=== PATIENT | female | born 1945 | race Caucasian/White ===

== ENCOUNTER 2017-11-27 10:25 | Observation (INO) ==
[2017-11-27] MEDS ORDERED: Ondansetron 4 MG/2 ML VIAL IVP ONE ×2 (10:50→15:42)
[2017-11-27] MEDS ORDERED: 0.9 % Sodium Chloride 1,000 ML IVC ONE (10:50)
[2017-11-27] MEDS ORDERED: *HR* HYDROcodone/Acet 5/325 mg TABLET PO ONE (10:50)
--- NOTE | 2017-11-27 10:53 | Emergency Department Note ---
Disposition Clinical Impression: Renal cyst, Hypoxia Abdominal pain Qualifiers: Abdominal location: unspecified location Qualified Code(s): R10.9 - Unspecified abdominal pain Urinary tract infection Qualifiers: Urinary tract infection type: site unspecified Hematuria presence: with hematuria Qualified Code(s): N39.0 - Urinary tract infection, site not specified Disposition: Admitted As Inpatient Condition: Good Referrals: Foreign Antunez MD [Primary Care Provider] - Scot Rodriguez MD [Partnered Physician] - 12/03/17 3:00 am Forms: ED Satisfaction Letter Time of Disposition: 14:50 General Adult HPI - General Chief complaint: ED Back Pain/Injury Stated complaint: kidney pain Time Seen by Provider: 11/27/17 10:38 Source: patient Mode of arrival: ambulatory Limitations: no limitations Nursing Notes Reviewed: Yes Vital Signs Reviewed: Yes - History of Present Illness HPI Narrative: 72-year-old female presents for evaluation of left flank pain. Patient states she fell proximally 2 months ago. Patient states that she started having urinary symptoms approximately a month ago it over the past 2 weeks had developed left-sided flank pain. Patient states she has completed a course of Cipro for 10 days by her primary care doctor after saying that she had a UTI. Patient states that her urinary symptoms have improved but noted persistent left flank pain. Notes pain is worse in the mornings. No specific aggravating or alleviating factors. Patient states that she is currently on a second round of Cipro. Patient denies any fevers. Reports some nausea but no vomiting. No diarrhea but does have some constipation. Patient has had her gallbladder removed. Denies any other abdominal surgeries. Pain Scale: 5 - Related Data Home Medications Medication Instructions Recorded Confirmed Amlodipine 09/08/15 Atenolol 09/08/15 Lisinopril 09/08/15 09/08/15 Previous Rx's Medication Instructions Recorded Phenazopyridine HCl [Pyridium] 200 mg PO TID #6 tab 09/08/15 Sulfamethoxazole/Trimeth DS 1 each PO BID #14 tablet 09/08/15 [Bactrim DS] Allergies Allergy/AdvReac Type Severity Reaction Status Date / Time codeine Allergy Rash Verified 11/27/17 10:32 Penicillins Allergy Rash Verified 11/27/17 10:32 All systems ED: reviewed and negative except as stated. Constitutional: Denies: fever Cardiovascular: Denies: chest pain Respiratory: Denies: cough Gastrointestinal: Reports: abdominal pain, nausea, vomiting, constipation Genitourinary: Denies: urgency, dysuria Past Medical History - Past Medical History Source: patient Medical history: Reports: hypertension Psychiatric history: Reports: depression - Social History Smoking Status: Never smoker Smokeless Tobacco Status: No Alcohol use: Reports: none Physical Exam - General Limitations: no limitations General appearance: alert, in no apparent distress - Head Head exam: atraumatic, normocephalic, normal inspection - Eye Eye exam: Present: normal appearance, PERRL, EOMI - ENT ENT exam: normal exam - Neck Neck exam: Present: normal inspection - Chest Chest inspection: Present: normal inspection - Respiratory Respiratory exam: Present: normal lung sounds bilaterally. Absent: respiratory distress - Cardiovascular Cardiovascular exam: Present: regular rate - Abdominal Exam Abdominal exam: Present: soft, Non-Tender - Extremities Exam Extremities exam: Present: normal inspection. Absent: pedal edema - Back Exam Back exam: Present: normal inspection, other (No significant left flank pain tenderness on palpation. No erythema or signs of injury.). Absent: CVA tenderness (R), CVA tenderness (L), vertebral tenderness, rashes - Neurological Exam Neurological exam: Present: alert, oriented X3, CN II-XII intact - Skin Skin exam: Present: warm, dry, intact, normal color Course Course Narrative: Patient seen and examined. Patient family the treatment without difficulty. Patient will get basic labs including a urinalysis. CT scan abdomen pelvis. Prior cultures of her urine grew Klebsiella which was sensitive to Levaquin. Disposition pending. - Reevaluation(s) Reevaluation #1: Patient seen and examined. Symptoms improved. Time: 11:51 Reevaluation #2: Patient seen and examined. Patient's pain is controlled. Vital stable. Patient does have arrange follow-up with urology. Discussion appointment within the next week. Patient will be given appropriate pain control and antibiotics until then. Time: 14:45 Reevaluation #3: Patient was noted to be hypoxic with room air sat of 88-89%. We will obtain a chest x-ray. Patient states she does not feel short of breath and has no history of lung disease. Time: 14:55 Vital Signs Temperature 97.9 F 11/27/17 10:30 Pulse Rate 63 11/27/17 10:30 Respiratory Rate 18 11/27/17 10:30 Blood Pressure 158/85 11/27/17 10:30 O2 Sat by Pulse Oximetry 97 11/27/17 10:30 Temperature 97.9 F 11/27/17 10:52 Pulse Rate 73 11/27/17 14:24 Respiratory Rate 14 11/27/17 14:24 Blood Pressure 161/92 11/27/17 14:24 O2 Sat by Pulse Oximetry 94 11/27/17 14:24 Oxygen Delivery Oxygen Delivery Room Air Medical Decision Making - MDM Narrative Medical decision making narrative: Patient presented for concerns of left flank pain. Patient had a CT scan which showed an indeterminate renal lesion concerning for hemorrhagic cyst. Patient has been having hematuria. Patient has findings consistent with urinary tract infection is been on Cipro. Patient prior cultures grew Klebsiella. Patient will be given a gram of Rocephin and discharged with Keflex. Patient was sensitive to that medication in the past. Patient will be given a short course of [place] to help with the cyst. Patient also be given antibiotics. Follow-up was arranged with urology. Prior discharge the patient was hypoxic. This was not correlated with the patient's pain management. Patient did get a chest x-ray showed mild cardiomegaly and elevated hemidiaphragm. No pneumonia. Patient is requiring 2 L nasal cannula. With this information the patient will likely need admission for oxygen supplementation as well as continued evaluation. Patient does have follow-up with urology scheduled. Will leave that in place. Will add a BNP to the patient's labs. - Lab Data Lab results reviewed: Yes I reviewed the patient's lab results. Result diagrams: 11/27/17 10:49 11/27/17 13:03 Lab Results 11/27/17 11/27/17 11/27/17 Range/Units 10:49 10:49 10:49 WBC 8.1 (4.3-11.1) K/mcL RBC 4.94 (3.82-4.97) M/mcL Hgb 14.1 (11.5-15.4) g/dL Hct 43.3 (35.3-44.9) % MCV 87.7 (83.0-100.0) fL MCH 28.5 (28.0-33.3) pg MCHC 32.6 (31.6-35.5) g/dL RDW 14.1 (11.5-14.5) % Plt Count 239 (140-400) K/mcL MPV 11.7 (9.4-12.4) fL Immature Gran % 0.2 (0-4) % Seg Neutrophils % 77.0 % Lymphocytes % 14.8 % Monocytes % 7.0 % Eosinophils % 0.4 % Basophils % 0.6 % Neutrophils # 6.2 (1.6-8.9) K/mcL Lymphocytes # 1.2 (0.6-4.6) K/mcL Monocytes # 0.6 (0.0-1.3) K/mcL Eosinophils # 0.0 (0.0-0.6) K/mcL Basophils # 0.1 (0.0-0.2) K/mcL Sodium Cancelled Potassium Cancelled Chloride Cancelled Carbon Dioxide Cancelled BUN Cancelled Creatinine Cancelled Est GFR ( Amer) Cancelled Est GFR (Non-Af Amer) Cancelled BUN/Creatinine Ratio Cancelled Glucose Cancelled Calculated Osmolality Cancelled Calcium Cancelled Total Bilirubin Cancelled Direct Bilirubin Cancelled Indirect Bilirubin Cancelled AST Cancelled ALT Cancelled Alkaline Phosphatase Cancelled Troponin I < 0.03 (< 0.04) ng/mL Serum Total Protein Cancelled Albumin Cancelled Globulin Cancelled Albumin/Globulin Ratio Cancelled Lipase Cancelled Urine Color (Yellow) Urine Clarity (Clear) Urine pH (5.0-8.0) pH Units Ur Specific [place] (1.010-1.025) Urine Protein (Neg-Trace) mg/dL Urine Glucose (UA) (Normal) mg/dL Urine Ketones (Negative) mg/dL Urine Blood (Negative) Urine Nitrite (Negative) Urine Bilirubin (Negative) Urine Urobilinogen (Normal) mg/dL Ur Leukocyte Esterase (Negative) Urine Microscopic RBC (0-3) per hpf Urine Microscopic WBC (0-3) per hpf Ur Squamous Epith Cells (None-Few) per lpf Urine Bacteria (None-Few) per hpf Hyaline Casts (None-Few) per lpf Ur Culture Indicated? (NO) Specimen Rejected Hemolyzed 11/27/17 11/27/17 Range/Units 12:07 13:03 WBC (4.3-11.1) K/mcL RBC (3.82-4.97) M/mcL Hgb (11.5-15.4) g/dL Hct (35.3-44.9) % MCV (83.0-100.0) fL MCH (28.0-33.3) pg MCHC (31.6-35.5) g/dL RDW (11.5-14.5) % Plt Count (140-400) K/mcL MPV (9.4-12.4) fL Immature Gran % (0-4) % Seg Neutrophils % % Lymphocytes % % Monocytes % % Eosinophils % % Basophils % % Neutrophils # (1.6-8.9) K/mcL Lymphocytes # (0.6-4.6) K/mcL Monocytes # (0.0-1.3) K/mcL Eosinophils # (0.0-0.6) K/mcL Basophils # (0.0-0.2) K/mcL Sodium 140 Potassium 3.7 Chloride 106 Carbon Dioxide 24 BUN 13 Creatinine 0.74 Est GFR ( Amer) > 60 Est GFR (Non-Af Amer) > 60 BUN/Creatinine Ratio 18 Glucose 108 H Calculated Osmolality 291 Calcium 8.7 Total Bilirubin 0.6 Direct Bilirubin 0.2 Indirect Bilirubin 0.4 AST 13 ALT 12 Alkaline Phosphatase 49 Troponin I (< 0.04) ng/mL Serum Total Protein 6.7 Albumin 4.0 Globulin 2.7 Albumin/Globulin Ratio 1.5 Lipase 13 Urine Color Dark Yellow (Yellow) Urine Clarity Clear (Clear) Urine pH 6.0 (5.0-8.0) pH Units Ur Specific [place] 1.026 H (1.010-1.025) Urine Protein Negative (Neg-Trace) mg/dL Urine Glucose (UA) Normal (Normal) mg/dL Urine Ketones 15 H (Negative) mg/dL Urine Blood Negative (Negative) Urine Nitrite Positive A (Negative) Urine Bilirubin Negative (Negative) Urine Urobilinogen Normal (Normal) mg/dL Ur Leukocyte Esterase Small H (Negative) Urine Microscopic RBC 0-3 (0-3) per hpf Urine Microscopic WBC 5-15 H (0-3) per hpf Ur Squamous Epith Cells Many H (None-Few) per lpf Urine Bacteria None Seen (None-Few) per hpf Hyaline Casts Few (None-Few) per lpf Ur Culture Indicated? NO. A (NO) Specimen Rejected - Radiology Data Radiology results reviewed: Yes I reviewed the patient's radiology results. Abdomen/Pelvis CT 09/19/18 10:50 IMPRESSION: 1. Diverticulosis. 2. Indeterminate hyperdense left renal lesion may relate to hemorrhagic cyst, although correlate CT imaging for renal mass. 3. Cholecystectomy. D/ / 11/27/2017 11:28:27 [facility] Interpre[facility] Provider: Emanuel Chapman MD - EKG Data EKG #1 EKG attestation: Yes I reviewed and interpreted this EKG. EKG shows normal: sinus rhythm Rate: normal Rhythm: NSR [place]/QRS: normal T wave inversions noted in: aVL Interpretation: no acute changes, nonspecific ST-T wave changes S.B.Negrito - Roberto Situation: Demographics Background: Presenting Complaint Assessment: Vital Signs, Course and respsone to treatment, Patient/Family Expectation Recommendation: Barrier(s) to disposition, Recommendation based on pending studies, treatments, or consults S.B.A.Hattie Report Given to: Dr. Beto Mejia Repor Time: 15:43 Attestation Statement - Attestation Attestation: I, oRcco De Guzman DO, examined this patient [id number] and my medical decision-making was reviewed with Dr. Geo Francis, Resident Physician. I agree with the documented findings, disposition and treatment plan as described except to the extent set forth below. Please see my progress notes for details.
--- NOTE | 2017-11-27 11:19 | Emergency Department Note ---
Disposition Clinical Impression: Renal cyst Abdominal pain Qualifiers: Abdominal location: unspecified location Qualified Code(s): R10.9 - Unspecified abdominal pain Urinary tract infection Qualifiers: Urinary tract infection type: site unspecified Hematuria presence: with hematuria Qualified Code(s): N39.0 - Urinary tract infection, site not specified Disposition: Admitted As Inpatient Condition: Good Referrals: Scot Rodriguez MD [Partnered Physician] - 12/03/17 3:00 am Foreign Antunez MD [Primary Care Provider] - Forms: ED Satisfaction Letter Time of Disposition: 13:56 General Adult HPI - General Chief complaint: ED Abdominal Pain Stated complaint: kidney pain Time Seen by Provider: 11/27/17 10:38 Source: patient Mode of arrival: ambulatory Limitations: no limitations - History of Present Illness Pain Scale: 5 - Related Data Home Medications Medication Instructions Recorded Confirmed Amlodipine 09/08/15 Atenolol 09/08/15 Lisinopril 09/08/15 09/08/15 Previous Rx's Medication Instructions Recorded Phenazopyridine HCl [Pyridium] 200 mg PO TID #6 tab 09/08/15 Sulfamethoxazole/Trimeth DS 1 each PO BID #14 tablet 09/08/15 [Bactrim DS] Allergies Allergy/AdvReac Type Severity Reaction Status Date / Time codeine Allergy Rash Verified 11/27/17 10:32 Penicillins Allergy Rash Verified 11/27/17 10:32 Constitutional: Denies: fever Cardiovascular: Denies: chest pain Respiratory: Denies: cough Gastrointestinal: Reports: abdominal pain, nausea, vomiting, constipation Genitourinary: Denies: urgency, dysuria Past Medical History - Past Medical History Medical history: Reports: hypertension Psychiatric history: Reports: depression - Social History Smoking Status: Never smoker Smokeless Tobacco Status: No Alcohol use: Reports: none Drug use: Reports: none Physical Exam - General Limitations: no limitations General appearance: alert, in no apparent distress Course Vital Signs Temperature 97.9 F 11/27/17 10:30 Pulse Rate 63 11/27/17 10:30 Respiratory Rate 18 11/27/17 10:30 Blood Pressure 158/85 11/27/17 10:30 O2 Sat by Pulse Oximetry 97 11/27/17 10:30 Temperature 97.9 F 11/27/17 10:52 Pulse Rate 73 09/19/18 14:24 Respiratory Rate 14 11/27/17 14:24 Blood Pressure 161/92 11/27/17 14:24 O2 Sat by Pulse Oximetry 94 11/27/17 14:24 Oxygen Delivery Oxygen Delivery Room Air Medical Decision Making - Lab Data Result diagrams: 11/27/17 10:49 11/27/17 13:03 Lab Results 11/27/17 11/27/17 11/27/17 Range/Units 10:49 10:49 10:49 WBC 8.1 (4.3-11.1) K/mcL RBC 4.94 (3.82-4.97) M/mcL Hgb 14.1 (11.5-15.4) g/dL Hct 43.3 (35.3-44.9) % MCV 87.7 (83.0-100.0) fL MCH 28.5 (28.0-33.3) pg MCHC 32.6 (31.6-35.5) g/dL RDW 14.1 (11.5-14.5) % Plt Count 239 (140-400) K/mcL MPV 11.7 (9.4-12.4) fL Immature Gran % 0.2 (0-4) % Seg Neutrophils % 77.0 % Lymphocytes % 14.8 % Monocytes % 7.0 % Eosinophils % 0.4 % Basophils % 0.6 % Neutrophils # 6.2 (1.6-8.9) K/mcL Lymphocytes # 1.2 (0.6-4.6) K/mcL Monocytes # 0.6 (0.0-1.3) K/mcL Eosinophils # 0.0 (0.0-0.6) K/mcL Basophils # 0.1 (0.0-0.2) K/mcL Sodium Cancelled Potassium Cancelled Chloride Cancelled Carbon Dioxide Cancelled BUN Cancelled Creatinine Cancelled Est GFR ( Amer) Cancelled Est GFR (Non-Af Amer) Cancelled BUN/Creatinine Ratio Cancelled Glucose Cancelled Calculated Osmolality Cancelled Calcium Cancelled Total Bilirubin Cancelled Direct Bilirubin Cancelled Indirect Bilirubin Cancelled AST Cancelled ALT Cancelled Alkaline Phosphatase Cancelled Troponin I < 0.03 (< 0.04) ng/mL Serum Total Protein Cancelled Albumin Cancelled Globulin Cancelled Albumin/Globulin Ratio Cancelled Lipase Cancelled Urine Color (Yellow) Urine Clarity (Clear) Urine pH (5.0-8.0) pH Units Ur Specific [place] (1.010-1.025) Urine Protein (Neg-Trace) mg/dL Urine Glucose (UA) (Normal) mg/dL Urine Ketones (Negative) mg/dL Urine Blood (Negative) Urine Nitrite (Negative) Urine Bilirubin (Negative) Urine Urobilinogen (Normal) mg/dL Ur Leukocyte Esterase (Negative) Urine Microscopic RBC (0-3) per hpf Urine Microscopic WBC (0-3) per hpf Ur Squamous Epith Cells (None-Few) per lpf Urine Bacteria (None-Few) per hpf Hyaline Casts (None-Few) per lpf Ur Culture Indicated? (NO) Specimen Rejected Hemolyzed 11/27/17 11/27/17 Range/Units 12:07 13:03 WBC (4.3-11.1) K/mcL RBC (3.82-4.97) M/mcL Hgb (11.5-15.4) g/dL Hct (35.3-44.9) % MCV (83.0-100.0) fL MCH (28.0-33.3) pg MCHC (31.6-35.5) g/dL RDW (11.5-14.5) % Plt Count (140-400) K/mcL MPV (9.4-12.4) fL Immature Gran % (0-4) % Seg Neutrophils % % Lymphocytes % % Monocytes % % Eosinophils % % Basophils % % Neutrophils # (1.6-8.9) K/mcL Lymphocytes # (0.6-4.6) K/mcL Monocytes # (0.0-1.3) K/mcL Eosinophils # (0.0-0.6) K/mcL Basophils # (0.0-0.2) K/mcL Sodium 140 Potassium 3.7 Chloride 106 Carbon Dioxide 24 BUN 13 Creatinine 0.74 Est GFR ( Amer) > 60 Est GFR (Non-Af Amer) > 60 BUN/Creatinine Ratio 18 Glucose 108 H Calculated Osmolality 291 Calcium 8.7 Total Bilirubin 0.6 Direct Bilirubin 0.2 Indirect Bilirubin 0.4 AST 13 ALT 12 Alkaline Phosphatase 49 Troponin I (< 0.04) ng/mL Serum Total Protein 6.7 Albumin 4.0 Globulin 2.7 Albumin/Globulin Ratio 1.5 Lipase 13 Urine Color Dark Yellow (Yellow) Urine Clarity Clear (Clear) Urine pH 6.0 (5.0-8.0) pH Units Ur Specific [place] 1.026 H (1.010-1.025) Urine Protein Negative (Neg-Trace) mg/dL Urine Glucose (UA) Normal (Normal) mg/dL Urine Ketones 15 H (Negative) mg/dL Urine Blood Negative (Negative) Urine Nitrite Positive A (Negative) Urine Bilirubin Negative (Negative) Urine Urobilinogen Normal (Normal) mg/dL Ur Leukocyte Esterase Small H (Negative) Urine Microscopic RBC 0-3 (0-3) per hpf Urine Microscopic WBC 5-15 H (0-3) per hpf Ur Squamous Epith Cells Many H (None-Few) per lpf Urine Bacteria None Seen (None-Few) per hpf Hyaline Casts Few (None-Few) per lpf Ur Culture Indicated? NO. A (NO) Specimen Rejected Attestation Statement - Attestation Attestation: I, Rocco De Guzman DO, examined this patient [id number] and my medical decision-making was reviewed with Dr. Geo Francis, Resident Physician. I agree with the documented findings, disposition and treatment plan as described except to the extent set forth below. Please see my progress notes for details. 72-year-old female presents emergency room with persistent flank pain. Patient was seen and evaluated and diagnosed a possible urinary tract infection. Is also seen several days ago for an issue with her blood pressure and a headache. Over the last couple days she has had persistent symptoms have not seemed to resolve. She is concerned sciatica come back up to the emergency room for evaluation. Her vital signs are stable on presentation she just describes abdominal and flank pain at this time. She denies any fevers or chills no chest pain or shortness of breath no headache vision changes nausea vomiting or diarrhea. Physical exam is otherwise unremarkable patient sitting upright in the bed no specific distress. Lungs are clear heart is regular. Mild flank pain noted with no CVA tenderness guarding or rigidity. Patient will have evaluation for possible pyelonephritis versus stone at this time. She does not have any specific history of stone. Symptoms will be controlled labs will be drawn disposition be determined once full treatment course I been established. See detailed documentation of the physical exam, medical intervention, medical decision-making disposition in the resident physician's note. No critical care applied to the patient's treatment course at this time. 1345 Patient is clinically stable. Found to have what looks like a hemorrhagic renal cyst. She also has a urinary tract infection I will sent for culture. The cultures reviewed here today the patient is sensitive to Rocephin. She will be treated with a gram of Rocephin here and then discharged on Keflex for 10 days. Otherwise the patient is asymptomatic with lingering pain in the left chest wall. No other acute trauma issues are noted. Patient is in stable medical condition with recommendation for close follow-up given. No other concerns at the time of discharge home. Patient is and ambulatory in no distress and family is comfortable taking her home at this point. 1535 Patient has been per treated for urinary tract infection. Patient was hypoxic when she went to ambulate. We are attempting and discharging her home but she is been persistently hypoxic with exertion. Some this could be secondary to fluids versus unknown etiology. Patient was discussed with the hospitalist Dr. Pérez for admission and evaluation for cardiac related evaluation as well as pulmonary etiology. Chest x-ray appears to be unremarkable. Disposition will be admission. No other recommendations or concerns noted this time. Some of the symptoms could be secondary to splinting with discomfort in the abdomen..
[2017-11-27 12:16] LABS: Basophils # 0.1 K/mcL (0.0-0.2); Basophils % 0.6 %; Eosinophils % 0.4 %; Hematocrit 43.3 % (35.3-44.9); Hemoglobin 14.1 g/dL (11.5-15.4); Immature Granulocytes % 0.2 % (0-4); Lymphocytes # 1.2 K/mcL (0.6-4.6); Lymphocytes % 14.8 %; Mean Corpuscular HGB Conc 32.6 g/dL (31.6-35.5); Mean Corpuscular Hemoglobin 28.5 pg (28.0-33.3); Mean Corpuscular Volume 87.7 fL (83.0-100.0); Mean Platelet Volume 11.7 fL (9.4-12.4); Monocytes # 0.6 K/mcL (0.0-1.3); Neutrophils # 6.2 K/mcL (1.6-8.9); Platelet Count 239 K/mcL (140-400); Red Blood Count 4.94 M/mcL (3.82-4.97); Red Cell Distribution Width 14.1 % (11.5-14.5)
[2017-11-27 12:28] LABS: Bilirubin,Urine Negative (Negative); Blood,Urine Negative (Negative); Clarity,Urine Clear (Clear); Color,Urine Dark Yellow (Yellow); Glucose,Urine (UA) Normal (Normal); Ketones,Urine 15 mg/dL (Negative); Leukocyte Esterase,Urine Small (Negative); Nitrite,Urine Positive (Negative); Protein,Urine Negative (Neg-Trace); Specific Gravity,Urine 1.026 (1.010-1.025); Urobilinogen,Urine Normal (Normal)
[2017-11-27 12:30] LABS: Bacteria,Urine None Seen per hpf (None-Few); Hyaline Casts,Urine Few per lpf (None-Few); RBC,Urine 0-3 per hpf (0-3); Squamous Epithelial Cell,Urine Many per lpf (None-Few)
[2017-11-27] MEDS ORDERED: cefTRIAXone 1,000 MG in Water for inj. (sterile) 20 ML 10 ML IVP ONE (13:24)
--- NOTE | 2017-11-27 13:31 | Electrocardiograph Report ---
[facility] [employer] Private Test Date: 2017-11-27 Pat Name: Fide Velez Department: EXAM8 Room: Gender: F Outpatient Psychiatrist: : 1945 Requested By: Geo Francis Order Number: [id number] Reading MD: Loki France Measurements Intervals [place] Rate: 65 P: 17 IN: 206 QRS: 29 QRSD: 78 T: 87 QT: 447 QTc: 465 Interpretive Statements Sinus rhythm Abnormal R-wave progression, early transition Minimal ST depression, lateral leads Electronically Signed On 11-27-2017 13:30:09 EDT by Loki France
[2017-11-27 14:05] LABS: Alanine Aminotransferase 12 Units/L (7-52); Albumin/Globulin Ratio 1.5 (1.1-2.2); Alkaline Phosphatase 49 Units/L (34-104); Aspartate Amino Transferase 13 Units/L (13-39); BUN/Creatinine Ratio 18 (6-26); Bilirubin,Direct 0.2 mg/dL (0.0-0.2); Bilirubin,Indirect 0.4 mg/dL (0.0-1.2); Bilirubin,Total 0.6 mg/dL (0.3-1.0); Blood Urea Nitrogen 13 mg/dL (8-23); Calcium 8.7 mg/dL (8.6-10.3); Carbon Dioxide 24 mEq/L (23-29); Chloride 106 mEq/L (98-107); Globulin 2.7 g/dL (2.4-3.5); Glucose 108 mg/dL (70-105); Lipase 13 Units/L (11-82); Osmolality,Calculated 291 (280-300); Potassium 3.7 mEq/L (3.5-5.1); Sodium 140 mEq/L (136-145); Total Protein 6.7 g/dL (6.4-8.9); eGFR For Non-African Americans > 60 (> 60)
[2017-11-27] MEDS ORDERED: *HR* FentaNYL (PF) 100 MCG/2 ML VIAL IVP ONE (15:41)
[2017-11-27] MEDS ORDERED: Naloxone 0.4 MG/ML INJ IVP PRN (17:38)
--- NOTE | 2017-11-27 17:44 | Internal Med History&Physical ---
Date of Encounter: 11/27/17 Time of Encounter: 17:25 Internal Medicine - H&P: HPI Chief complaint: Left flank pain Admitted From: Emergency Dept Plans for Post Hospital Care: Home History of present illness: Ms. Velez is a 72 year old female patient with history of essential hypertension who came to the ER with complaints of left-sided flank pain. It began about a week back and has been progressively getting worse. She denies any fevers or chills. She did notice that in her urine earlier today. She has also been having nausea. No chest pain or palpitations. She denies any cough. No lower extremity swelling. While in the ER she was noted to be hypoxic. She responded well to 2 L O2 supplementation and is currently saturating at 98% . She does not report any shortness of breath. No history of smoking but she was exposed to secondhand smoke till the age of 20. No history of asthma or COPD. Past Med Surg Social Fam HX - Past Medical History Attestation: Yes The following information was validated with the patient. Source: patient Medical history: hypertension Psychiatric history: depression - Past Surgical History Additional surgical history: B/L mastectomy - Social History Smoking Status: Never smoker Smokeless Tobacco Status: No Alcohol use: none Drug use: none - Additional Family History Additional family history: Family history reviewed and found to be noncontributory at this time Internal Medicine - H&P: Meds Atenolol [Tenormin] 50 mg PO DAILY 09/08/15 [History] Lisinopril [Zestril] 20 mg PO DAILY 09/08/15 [History] amLODIPine [Norvasc] 5 mg PO DAILY 09/08/15 [History] Atorvastatin [Lipitor] 10 mg PO HS 11/27/17 [History] 3 Allergy/AdvReac Type Severity Reaction Status Date / Time codeine Allergy Rash Verified 11/27/17 10:32 Penicillins Allergy Rash Verified 11/27/17 10:32 All Systems PM: A 10-system review of systems was performed and is negative for pertinent findings except as documented above in the HPI. - Constitutional Constitutional: no chills, no fever(s), no night sweats - EENT Eyes: no change in vision, no discharge, no pain, no photophobia Ears: no ear discharge, no ear pain, no tinnitus Nose, mouth and throat: no dysphagia, no nasal discharge, no neck pain, no sore throat - Cardiovascular Cardiovascular ROS IM: no chest pain, no diaphoresis, no dyspnea, no lightheadedness, no palpitations, no syncope - Respiratory Respiratory: no cough, no dyspnea, no wheezing, no excessive phlegm production - Gastrointestinal Gastrointestinal: no abdominal pain, no diarrhea, no hematemesis, no hematochezia, no melena, no nausea, no vomiting - Genitourinary Genitourinary: no change in urinary stream, no dysuria, no flank pain, no hematuria - Musculoskeletal Musculoskeletal ROS IM: no numbness, no tingling - Integumentary Integumentary IM: no rash, no unusual bruising - Neurological Neurological ROS: no confusion, no convulsions, no focal weakness, no numbness, no tingling, no tremor(s) - Hematologic/Lymphatic Hematologic/Lymphatic: no easy bruising - Constitutional Vitals: Temp Pulse Resp BP Pulse Ox 97.9 F 72 18 148/81 96 11/27/17 10:52 11/27/17 17:37 11/27/17 17:37 11/27/17 17:37 11/27/17 17:37 General appearance: Present: cooperative, mild distress, A&O X 3, pleasant, answers questions appropriately Exam: . - Neck Neck exam general surgery: Present: supple, trachea midline. Absent: lymphadenopathy - Respiratory Respiratory exam: Present: CTAB. Absent: accessory muscle use, rales, rhonchi, wheezes - Cardiovascular Cardiovascular exam: Present: RRR, +S1, +S2. Absent: diastolic murmur, gallop, rubs, systolic murmur - GI/Abdominal GI/Abdominal exam: Present: normal bowel sounds, soft, no peritoneal signs. Absent: distended, tenderness - Extremities Exam Extremities exam: Present: warm, radial pulses palpable and symmetrical. Absent : calf tenderness, cyanotic, pedal edema - Neurological Exam Neurological exam: Present: CN II-XII intact, oriented X3, no focal deficits. Absent: facial droop, speech deficit - Skin Skin exam: Present: dry, intact Internal Med - H&P Results - Labs CBC & Chem 7: 11/27/17 10:49 11/27/17 13:03 Labs: Short CBC 11/27/17 Range/Units 10:49 WBC 8.1 (4.3-11.1) K/mcL Hgb 14.1 (11.5-15.4) g/dL Hct 43.3 (35.3-44.9) % Plt Count 239 (140-400) K/mcL Neutrophils # 6.2 (1.6-8.9) K/mcL BMP 11/27/17 11/27/17 10:49 13:03 Sodium Cancelled 140 Potassium Cancelled 3.7 Chloride Cancelled 106 Carbon Dioxide Cancelled 24 BUN Cancelled 13 Creatinine Cancelled 0.74 Glucose Cancelled 108 H Calcium Cancelled 8.7 Cardiac Enzymes 11/27/17 Range/Units 10:49 Troponin I < 0.03 (< 0.04) ng/mL Liver Function 11/27/17 11/27/17 Range/Units 10:49 13:03 Total Bilirubin Cancelled 0.6 Direct Bilirubin Cancelled 0.2 AST Cancelled 13 ALT Cancelled 12 Alkaline Phosphatase Cancelled 49 Albumin Cancelled 4.0 Urine 11/27/17 Range/Units 12:07 Urine Color Dark Yellow (Yellow) Urine Clarity Clear (Clear) Urine pH 6.0 (5.0-8.0) pH Units Ur Specific [place] 1.026 H (1.010-1.025) Urine Protein Negative (Neg-Trace) mg/dL Urine Glucose (UA) Normal (Normal) mg/dL - Impressions ITS Impressions Abdomen/Pelvis CT 11/27/17 10:50 IMPRESSION: 1. Diverticulosis. 2. Indeterminate hyperdense left renal lesion may relate to hemorrhagic cyst, although correlate CT imaging for renal mass. 3. Cholecystectomy. D/ / 11/27/2017 11:28:27 Emanuel Chapman MD / [facility] Interpreting Provider: Emanuel Chapman MD Chest X-Ray 11/27/17 14:54 IMPRESSION: Marked elevation of the left hemidiaphragm Hiatal hernia Cardiomegaly D/ / 11/27/2017 15:21:59 Edgar Jerry MD / [facility] Interpreting Provider: Edgar Jerry MD - Assessment and plan (1) Hypoxia Current Visit: Yes Status: Acute Assessment and plan: Patient has been hypoxic in the ER. Etiology unknown at this time. She did have a history of secondhand exposure to smoke but has not had issues with COPD or asthma in past. We will continue O2 supplementation for today. Chest x-ray does show elevated left hemidiaphragm. No prior chest x-ray here to compare. We will provide incentive spirometry. Evaluate for home oxygen tomorrow. We will get 2-D echocardiogram and chest CT tomorrow if patient remains hypoxic. (2) Urinary tract infection Current Visit: Yes Status: Acute Assessment and plan: Urinalysis shows small leukocyte esterase with 5-15 WBC. Given her age, we will treat for possible UTI. Treat empirically with Rocephin for now. Qualifiers: Urinary tract infection type: site unspecified Hematuria presence: with hematuria Qualified Code(s): N39.0 - Urinary tract infection, site not specified; R31.9 - Hematuria, unspecified (3) Renal cyst Current Visit: Yes Status: Acute Assessment and plan: Left renal hemorrhagic cyst per initial CT scan of the abdomen and pelvis done in the ER. Recommend outpatient follow-up with urology. (4) Hypertension Current Visit: Yes Status: Chronic Assessment and plan: Blood pressure is elevated in the ER. Likely due to abdominal and flank pain. We will resume home medications. Monitor vital signs closely. Qualifiers: Hypertension type: essential hypertension Qualified Code(s): I10 - Essential (primary) hypertension - Time Spent With Patient Total time spent is greater than 50% in coordination of care (as documented) at patient's floor/unit and/or counseling patient:
[2017-11-27] MEDS ORDERED: Acetaminophen 325 MG TABLET PO ONE (22:10)
[2017-11-28] MEDS ORDERED: Acetaminophen 325 MG TABLET PO ONE (04:12)
[2017-11-28 05:03] LABS: Basophils # 0.1 K/mcL (0.0-0.2); Basophils % 0.6 %; Eosinophils # 0.1 K/mcL (0.0-0.6); Eosinophils % 1.6 %; Hemoglobin 12.8 g/dL (11.5-15.4); Immature Granulocytes % 0.1 % (0-4); Lymphocytes # 2.1 K/mcL (0.6-4.6); Lymphocytes % 25.8 %; Mean Corpuscular HGB Conc 32.8 g/dL (31.6-35.5); Mean Corpuscular Hemoglobin 28.3 pg (28.0-33.3); Mean Corpuscular Volume 86.1 fL (83.0-100.0); Mean Platelet Volume 11.5 fL (9.4-12.4); Monocytes # 0.8 K/mcL (0.0-1.3); Monocytes % 9.5 %; Neutrophils # 5.1 K/mcL (1.6-8.9); Platelet Count 213 K/mcL (140-400); Red Blood Count 4.53 M/mcL (3.82-4.97); Red Cell Distribution Width 14.3 % (11.5-14.5); Segmented Neutrophils % 62.4 %
[2017-11-28 05:21] LABS: BUN/Creatinine Ratio 19 (6-26); Blood Urea Nitrogen 12 mg/dL (8-23); Calcium 8.8 mg/dL (8.6-10.3); Carbon Dioxide 28 mEq/L (23-29); Chloride 106 mEq/L (98-107); Glucose 91 mg/dL (70-105); Osmolality,Calculated 291 (280-300); Potassium 3.3 mEq/L (3.5-5.1); Sodium 141 mEq/L (136-145); eGFR For Non-African Americans > 60 (> 60)
[2017-11-28] MEDS ORDERED: amLODIPine 5 MG TABLET PO SCH (09:00)
[2017-11-28] MEDS ORDERED: Lisinopril 20 MG TABLET PO SCH (09:00)
[2017-11-28] MEDS ORDERED: Isovue-370 500 ML INFUS..BTL IV ONE (11:13)
--- NOTE | 2017-11-28 11:26 | Internal Med Progress Note ---
Hospitalist Progress Note - Encounter Date of Encounter: 11/28/17 Time of Encounter: 08:00 - Subjective Interval History: Patient is awake and alert. Comfortable. Nervous about her condition and hypoxia. Denies any chest pain or palpitations. No dysuria. Flank pain well controlled. No fever or chills reported overnight. - Exam Vitals: Temp Pulse Resp BP Pulse Ox 97.5 F L 73 17 148/84 93 11/28/17 07:53 11/28/17 07:53 11/28/17 07:53 11/28/17 07:53 11/28/17 07:53 Exam: General: Patient is alert, no acute distress, oriented x 3 Respiratory: Good respiratory effort. Normal breath sounds. No wheezing or crackles. Cardiovascular: Regular rate and rhythm. s1 and s2 normal No clicks, rubs, gallops, or murmurs. No pedal edema Abdomen: Abdomen is soft, nontender. Bowel sounds are present Musculoskeletal: Spontaneously moving all extremities Skin: warm, dry, intact. Neuro: Alert oriented x 3 normal cranial nerves, no focal deficits - Assessment and Plan (1) Hypoxia Current Visit: Yes Status: Acute Assessment and Plan: Patient continues to be hypoxic with ambulation. Her sats dropped to 82% on room air on walk test. Awaiting echocardiogram. We will also order CT angiogram of the chest. Continue O2 supplementation. Moderate risk for complications. (2) Urinary tract infection Current Visit: Yes Status: Acute Assessment and Plan: On Rocephin. (3) Renal cyst Current Visit: Yes Status: Acute Assessment and Plan: Follow-up with urology as outpatient (4) Hypertension Current Visit: Yes Status: Chronic Assessment and Plan: Blood pressure is well controlled at this time - Time Spent with Patient Total time spent is greater than 50% in coordination of care (as documented) at patient's floor/unit and/or counseling patient: Internal Medicine: Result - Labs CBC & Chem 7: 11/28/17 03:53 11/28/17 03:53 Labs: Short CBC 11/28/17 Range/Units 03:53 WBC 8.2 (4.3-11.1) K/mcL Hgb 12.8 (11.5-15.4) g/dL Hct 39.0 (35.3-44.9) % Plt Count 213 (140-400) K/mcL Neutrophils # 5.1 (1.6-8.9) K/mcL BMP 11/28/17 03:53 Sodium 141 Potassium 3.3 L Chloride 106 Carbon Dioxide 28 BUN 12 Creatinine 0.62 Glucose 91 Calcium 8.8 Consult Discharge Plan - Plan Referrals: Foreign Antunez MD [Primary Care Provider] - (2) Urinary tract infection Qualifiers: Urinary tract infection type: site unspecified Hematuria presence: with hematuria Qualified Code(s): N39.0 - Urinary tract infection, site not specified; R31.9 - Hematuria, unspecified (4) Hypertension Qualifiers: Hypertension type: essential hypertension Qualified Code(s): I10 - Essential (primary) hypertension
[2017-11-28] MEDS ORDERED: Furosemide 20 MG/2 ML VIAL IVP SCH (15:15)
[2017-11-28 15:27] VITALS: BP 177/93
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
--- NOTE | 2017-11-28 17:05 | Discharge Summary ---
- NOTES TO OUTPATIENT PROVIDER Notes to Outpatient Provider: Patient was hospitalized here with hypoxia that was found incidentally while the patient was in the ER. She had presented to the ER with flank pain. CT of the abdomen and pelvis showed possible hemorrhagic left renal cyst. She had an echocardiogram done today which showed EF of 65% with mild LVH and left ventricle diastolic dysfunction. CT angiogram of the chest was also done which showed elevated left hemidiaphragm with left basilar subsegmental atelectasis which could be possibly contributing to her hypoxia. She also has a incidental 1.2 cm noncalcified nodule in the posterior medial mid middle lobe. Pulmonology recommends repeat CT scan in 3 months. Date of Encounter: 11/28/17 Time of Encounter: 17:03 - Discharge Diagnosis (1) Hypoxia Priority: Primary Status: Acute (2) Urinary tract infection Priority: Secondary Status: Acute Qualifiers: Urinary tract infection type: site unspecified Hematuria presence: with hematuria Qualified Code(s): N39.0 - Urinary tract infection, site not specified; R31.9 - Hematuria, unspecified (3) Renal cyst Priority: Secondary Status: Acute (4) Hypertension Priority: Secondary Status: Chronic Qualifiers: Hypertension type: essential hypertension Qualified Code(s): I10 - Essential (primary) hypertension Hospital course: Ms. Velez is a 72 year old female Patient with history of essential hypertension who was hospitalized here with hypoxia that was found incidentally while the patient was in the ER. She had presented to the ER with flank pain. CT of the abdomen and pelvis showed possible hemorrhagic left renal cyst. She had an echocardiogram done today which showed EF of 65% with mild LVH and left ventricle diastolic dysfunction. CT angiogram of the chest was also done which showed elevated left hemidiaphragm with left basilar subsegmental atelectasis which could be possibly contributing to her hypoxia. She also has a incidental 1.2 cm noncalcified nodule in the posterior medial mid middle lobe. Pulmonology recommends repeat CT scan in 3 months. Patient will also be discharged on 20 mg of Lasix and potassium supplements for her diastolic dysfunction as she occasionally develops pedal edema. Patient does have uncontrolled hypertension and has recently placed back on amlodipine. With the addition of Lasix, her blood pressure should be better controlled. This can be followed up further as outpatient. Discharge discussed with: patient, nurse, accounting consultant - Time Spent with Patient Total time spent providing and/or coordinating discharge services: Greater than 30 minutes (35 min) - Discharge Medications Prescriptions: Furosemide [Lasix] 20 mg PO DAILY #30 tablet Nitrofurantoin Monohyd/M-Cryst [Macrobid 100 mg Capsule] 100 mg PO BID #6 capsule Potassium Chloride [K-Tab ER] 20 meq PO DAILY #30 tablet.er Home Medications: Atenolol [Tenormin] 50 mg PO DAILY 09/08/15 [History] Lisinopril [Zestril] 20 mg PO DAILY 09/08/15 [History] amLODIPine [Norvasc] 5 mg PO DAILY 09/08/15 [History] Atorvastatin [Lipitor] 10 mg PO HS 11/27/17 [History] Furosemide [Lasix] 20 mg PO DAILY #30 tablet 11/28/17 [Rx] Nitrofurantoin Monohyd/M-Cryst [Macrobid 100 mg Capsule] 100 mg PO BID #6 capsule 11/28/17 [Rx] Potassium Chloride [K-Tab ER] 20 meq PO DAILY #30 tablet.er 11/28/17 [Rx] Allergies/Adverse Reactions: 3 Allergy/AdvReac Type Severity Reaction Status Date / Time codeine Allergy Rash Verified 11/27/17 10:32 Penicillins Allergy Rash Verified 11/27/17 10:32 Date of admission: 11/27/17 18:52 Primary care physician: Foreign Antunez MD Consults: 11/28/17 15:15 Consult to Pulmonology [CONS] Routine Consulting Provider: [facility] Reason for Consult: Persistent Hypoxia Time Notified: 15:15 Call Completed: Yes Discharging clinician: Majninder Pineda Anticipated date of discharge: 11/28/17 - Constitutional Vitals: Temp Pulse Resp BP Pulse Ox 98.1 F 70 18 177/93 92 11/28/17 15:27 11/28/17 15:27 11/28/17 15:27 11/28/17 15:27 11/28/17 15:27 General appearance: Present: cooperative, mild distress, A&O X 3, pleasant, answers questions appropriately Exam: General: Patient is alert, no acute distress, oriented x 3 Respiratory:Decreased breath sounds at bases No wheezing or crackles. Cardiovascular: Regular rate and rhythm. s1 and s2 normal No clicks, rubs, gallops, or murmurs. No pedal edema Abdomen: Abdomen is soft, nontender. Bowel sounds are present Musculoskeletal: Spontaneously moving all extremities Skin: warm, dry, intact. Neuro: Alert oriented x 3 normal cranial nerves, no focal deficits - Patient Status Disposition: Home, Self-Care Condition: Good Functional capacity at discharge: independent ambulation Overall status at discharge: patient is progressing back to baseline - Ambulatory Orders Ambulatory Orders: CT chest wo con [CT] Time Frame: 3 Months, Facility: [facility], Location: Radiology Sleep Study Time Frame: 3 Weeks, Facility: [facility], Location: [facility] - Discharge Instructions Instructions: Urinary Tract Infection in Women (DC) Follow Up With: Foreign Antunez MD [Primary Care Provider] - (in 1-2 weeks) Noa Ortega MD [Partnered Physician] - (3-4 weeks for splinting atelectasis; lung nodule) Jonathan Rushing MD [Partnered Physician] - (in 2-3 weeks ; hemorrhagic renal cyst) - Diet and Activity Activity: increase activity as tolerated Diet: low salt diet
== END 2017-11-28 18:21 | disposition home or self-care (01) ==
LOC: EMEROOARM 10:25 → 3BNU 10:25 → SUATTDRO 18:52 → 3BNU 19:57
PROVIDERS: ADMIT Internal Medicine; ATTEND Internal Medicine